=== PATIENT | female | born 1965 | race Caucasian/White ===

== ENCOUNTER 2017-06-10 18:22 | Emergency (ER) | payer MEDICAID ==
[2017-06-10 20:09] LABS: BASOPHIL % 0.3 % (0-2); PLATELET COUNT 217 x10^3mcL (130-400); RED CELL DISTRIBUTION WIDTH 14.1 % (11.5-14.5)
[2017-06-10 20:18] LABS: CALCIUM 8.8 mg/dL (8.5-10.1); CARBON DIOXIDE 27.4 mmol/L (21-32); CHLORIDE SERUM 103 mmol/L (98-107); CREATININE SERUM 0.7 mg/dL (0.6-1.0); GFR1 > 60 mL/min; GLUCOSE SERUM 108 mg/dL (74-106); POTASSIUM SERUM 3.6 mmol/L (3.5-5.1); SODIUM SERUM 139 mmol/L (136-145)
[2017-06-10 20:23] LABS: microscopic required? NO
[2017-06-10 20:27] LABS: ALBUMIN 3.9 g/dL (3.4-5.0); ALKALINE PHOSPHATASE 156 U/L (46-116); ALT/SGPT 37 U/L (14-59); AST/SGOT 32 U/L (15-37); BILIRUBIN TOTAL 0.3 mg/dL (0.20-1.00); FREE T4 1.14 ng/dL (0.76-1.46); TOTAL PROTEIN, SERUM 8.3 g/dL (6.4-8.2)
[2017-06-10 20:46] LABS: UA SPECIFIC GRAVITY 1.015 (1.005-1.035); urine erythrocyte NEGATIVE (NEGATIVE)
[2017-06-10 23:34] LABS: APPEARANCE CSF CLEAR; COLOR CSF COLORLESS; RBC CSF 81 /cumm (0); TOTAL PROTEIN CSF 36.3 mg/dL (15-45); WBC CSF 2 /cumm (0-5)
[2017-06-10 23:35] LABS: APPEARANCE CSF CLEAR; COLOR CSF COLORLESS; RBC CSF 0 /cumm (0); WBC CSF 2 /cumm (0-5)
[2017-06-11 01:01] VITALS: BP 96/60
== END 2017-06-11 01:01 | disposition home or self-care (01) ==
LOC: ED 18:22
PROVIDERS: Emergency Medicine
DX: R51 Headache (principal); H53.149 Visual discomfort, unspecified; R11.10 Vomiting, unspecified; I10 Essential (primary) hypertension
CPT/HCPCS: 84439; J0696; J1885; J2001; J2765